=== PATIENT | female | born 1965 | race Hispanic/Latino ===

== ENCOUNTER 2017-05-24 16:56 | Inpatient (IN) | payer SELFPAY ==
[~2017-05-24] VITALS: Ht 157.5 cm; Wt 54.4 kg
[2017-05-24 18:05] LABS: APPEARANCE,URINE Turbid (CLEAR); BILIRUBIN,URINE Negative (NEGATIVE); COLOR,URINE Yellow (YELLOW); GLUCOSE, URINE (UA) >=1000 mg/dL (NEGATIVE); KETONES,URINE 40 mg/dL (NEGATIVE); LEUKOCYTE ESTERASE ,URINE Moderate (NEGATIVE); NITRATE,URINE Negative (NEGATIVE); OCCULT BLOOD,URINE Large (NEGATIVE); PROTEIN,URINE POS 2+ (NEGATIVE); UROBILINOGEN,URINE 0.2 mg/dL (0.2-1.0)
[2017-05-24] MEDS ORDERED: ONDANSETRON HCL 4 MG/2 ML VIAL ONE (18:15)
[2017-05-24] MEDS ORDERED: SODIUM CHLORIDE 0.9% 1000ML 1,000 ML IV ONE ×2 (18:16→18:35)
[2017-05-24] MEDS ORDERED: KETOROLAC TROMETHAMINE 15MG/ML ONE ×2 (18:16→22:26)
[2017-05-24 18:25] LABS: RBC,URINE None Seen /HPF (0-1)
[2017-05-24 18:26] LABS: BACTERIA,URINE Many /HPF (None Seen); SQUAMOUS EPITHELIAL CELL,UR 30-50 /LPF (0-2); WBC,URINE >100 /HPF (0-1)
[2017-05-24 18:27] LABS: HEMATOCRIT 34.5 % (36-48); MEAN CORPUSCULAR HEMOGLOBIN 28.7 pg (27.0-33.0); MEAN CORPUSCULAR HGB CONC 33.5 g/dL (32.0-36.0); MEAN CORPUSCULAR VOLUME 85.8 fL (79-99); PLATELET COUNT (AUTO) 165 K/uL (130-400); RED BLOOD CELL COUNT(AUTO) 4.02 MIL/uL (4.00-5.50); RED CELL DISTRIBUTION WIDTH 14.4 % (11.0-15.5); WHITE BLOOD COUNT (AUTO) 26.4 K/uL (4.8-10.8)
[2017-05-24 18:45] LABS: ALANINE AMINOTRANSFERASE 20 U/L (12-78); ALBUMIN 2.2 g/dL (3.5-5.0); ASPARTATE AMINOTRANSFERASE 25 U/L (10-37); BILIRUBIN,TOTAL 0.8 mg/dL (0.2-1.0); CARBON DIOXIDE 21 mmol/L (21-32); CREATININE 1.4 mg/dL (0.5-1.5); GLOMERULAR FILTR. RATE CALC 42 mL/min (>60); LIPASE < 50 U/L (114-286); POTASSIUM 3.7 mmol/L (3.5-5.1); SODIUM SERUM 119 mmol/L (136-145); TOTAL PROTEIN, SERUM 7.6 g/dL (6.0-8.3); UREA NITROGEN, BLOOD 30 mg/dL (7-18)
[2017-05-24 18:47] LABS: CHLORIDE 82 mmol/L (101-111); GLUCOSE,RANDOM 525 mg/dL (70-105)
[2017-05-24 18:48] LABS: INR 0.98 (0.85-1.15); PARTIAL THROMBOPLASTIN TIME 44.5 SEC (26.3-35.5); PROTHROMBIN TIME 10.3 SEC (9.6-11.6)
[2017-05-24 19:23] LABS: BAND NEUTROPHILS % (MANUAL) 10 % (0-2); MAN.DIFF COMMENT-IMPRESSION MANUAL DIFFERENTIAL; METAMYELOCYTES % 3 % (0-0); MONOCYTES % (MANUAL) 1 % (2-9); PLATELET MORPHOLOGY COMMENT ADEQUATE; SEGMENTED NEUTROPHILS % 86 % (40-70)
[2017-05-24] MEDS ORDERED: CEFTRIAXONE SODIUM 1 GM ONE (20:34)
[2017-05-24 20:54] LABS: ABG BASE EXCESS -3.8 mmol/L (-2.0-3.0); ABG HCO3 18.9 mmol/L (21.0-28.0); ABG OXYGEN SATURATION 96.1 % (95.0-99.0); ABG PCO2 29 mmHg (32-45)
[2017-05-24] MEDS: KETOROLAC TROMETHAMINE 15MG/ML IV SCH (21:00)
[2017-05-24] MEDS ORDERED: SODIUM CHLORIDE 0.9% 1000ML 1,000 ML IV SCH (21:15)
[2017-05-24] MEDS: SODIUM CHLORIDE 0.9% 1000ML 1,000 ML IV SCH (23:36)
[2017-05-24] MEDS ORDERED: MORPHINE SULFATE 10 MG/ML 1ML SYG IVP ONE (23:45)
[2017-05-25] MEDS ORDERED: TRAMADOL HCL 50 MG TABLET ONE ×2 (00:51→13:20)
[2017-05-25] MEDS: KETOROLAC TROMETHAMINE 15MG/ML IV SCH ×6 (01:00→21:00)
[2017-05-25] MEDS ORDERED: MORPHINE SULFATE 2 MG/ML 1ML SYG ONE (03:47)
[2017-05-25] MEDS ORDERED: SODIUM CHLORIDE 0.9% 1000ML 1,000 ML IV ONE (05:08)
[2017-05-25 05:41] LABS: ALBUMIN 1.8 g/dL (3.5-5.0); BILIRUBIN,TOTAL 0.5 mg/dL (0.2-1.0); CREATININE 1.2 mg/dL (0.5-1.5); POTASSIUM 3.3 mmol/L (3.5-5.1); TOTAL PROTEIN, SERUM 6.6 g/dL (6.0-8.3)
[2017-05-25 05:46] LABS: BASOPHILS % (AUTO) 0.4 % (0.0-5.0); EOSINOPHILS % (AUTO) 3.6 % (0.0-8.0); HEMATOCRIT 31.2 % (36-48); MEAN CORPUSCULAR HEMOGLOBIN 28.7 pg (27.0-33.0); MEAN CORPUSCULAR HGB CONC 33.6 g/dL (32.0-36.0); MEAN CORPUSCULAR VOLUME 85.3 fL (79-99); MONOCYTES % (AUTO) 4.8 % (3.0-13.0); NEUTROPHILS % (AUTO) 89.2 % (40.0-77.0); PLATELET COUNT (AUTO) 142 K/uL (130-400); RED BLOOD CELL COUNT(AUTO) 3.66 MIL/uL (4.00-5.50); RED CELL DISTRIBUTION WIDTH 14.1 % (11.0-15.5); WHITE BLOOD COUNT (AUTO) 21.7 K/uL (4.8-10.8)
[2017-05-25] MEDS ORDERED: CEFTRIAXONE SODIUM 1 GM ONE (07:19)
[2017-05-25] MEDS ORDERED: INSULIN HUMULIN R 100 UNIT/ML 3ML ONE (07:20)
[2017-05-25] MEDS ORDERED: SODIUM CHLORIDE 0.9% 50 ML IV ONE (07:21)
[2017-05-25] MEDS: INSULIN LISPRO 100 UNIT/ML 3ML SQ SCH ×4 (07:30→20:57)
[2017-05-25] MEDS: CEFTRIAXONE SODIUM 1 GM IVP SCH ×2 (08:00→20:55)
[2017-05-25] MEDS ORDERED: CEFTRIAXONE 1GM/D5W 50ML 50 ML IV SCH (09:00)
[2017-05-25] MEDS: PANTOPRAZOLE SODIUM 40 MG TABLET.DR PO SCH (09:00)
[2017-05-25] MEDS ORDERED: PANTOPRAZOLE SODIUM 40 MG TABLET.DR PO ONE (09:20)
[2017-05-25] MEDS: SODIUM CHLORIDE 0.9% 1000ML 1,000 ML IV SCH ×2 (09:36→18:31)
[2017-05-25 15:28] VITALS: BP 128/70
[2017-05-25 19:00] VITALS: BP 117/64
[2017-05-25] MEDS ORDERED: WATER FOR INJECTION,STERILE 20 ML VIAL ONE (20:48)
[2017-05-25] MEDS ORDERED: MORPHINE SULFATE 2 MG/ML 1ML SYG IVP ONE (22:00)
[2017-05-25 23:00] VITALS: BP 131/65
[2017-05-26] MEDS: KETOROLAC TROMETHAMINE 15MG/ML IV SCH ×6 (00:24→21:33)
[2017-05-26 03:00] VITALS: BP 133/79
[2017-05-26] MEDS: SODIUM CHLORIDE 0.9% 1000ML 1,000 ML IV SCH ×2 (05:13→16:33)
[2017-05-26 05:54] LABS: HEMATOCRIT 30.2 % (36-48); MEAN CORPUSCULAR HEMOGLOBIN 28.3 pg (27.0-33.0); MEAN CORPUSCULAR HGB CONC 33.3 g/dL (32.0-36.0); PLATELET COUNT (AUTO) 146 K/uL (130-400); RED BLOOD CELL COUNT(AUTO) 3.56 MIL/uL (4.00-5.50); RED CELL DISTRIBUTION WIDTH 14.3 % (11.0-15.5); WHITE BLOOD COUNT (AUTO) 15.6 K/uL (4.8-10.8)
[2017-05-26] MEDS ORDERED: INSULIN LISPRO 100 UNIT/ML 3ML SQ SCH (06:00)
[2017-05-26] MEDS: INSULIN LISPRO 100 UNIT/ML 3ML SQ SCH ×4 (06:21→21:44)
[2017-05-26 06:51] LABS: BAND NEUTROPHILS % (MANUAL) 8 % (0-2); LYMPHOCYTES % (MANUAL) 2 % (22-44); MAN.DIFF COMMENT-IMPRESSION MANUAL DIFFERENTIAL; MONOCYTES % (MANUAL) 5 % (2-9); PLATELET MORPHOLOGY COMMENT ADEQUATE; SEGMENTED NEUTROPHILS % 85 % (40-70)
[2017-05-26 07:37] VITALS: BP 134/72
[2017-05-26] MEDS: CEFTRIAXONE SODIUM 1 GM IVP SCH ×2 (10:00→21:33)
[2017-05-26] MEDS: PANTOPRAZOLE SODIUM 40 MG TABLET.DR PO SCH (10:01)
[2017-05-26 11:23] VITALS: BP 105/68
[2017-05-26 16:07] VITALS: BP 102/69
[2017-05-26 19:00] VITALS: BP 119/75
[2017-05-26] MEDS ORDERED: INSULIN GLARGINE 100 UNITS/ML 10 ML VIAL SQ SCH (21:00)
[2017-05-26] MEDS ORDERED: INSULIN LISPRO 100 UNIT/ML 3ML SQ ONE (21:25)
[2017-05-27 00:25] VITALS: BP 132/76
[2017-05-27] MEDS: KETOROLAC TROMETHAMINE 15MG/ML IV SCH ×6 (01:00→21:16)
[2017-05-27 03:00] VITALS: BP 134/82
[2017-05-27] MEDS ORDERED: INSULIN LISPRO 100 UNIT/ML 3ML SQ ONE (06:37)
[2017-05-27] MEDS: INSULIN LISPRO 100 UNIT/ML 3ML SQ SCH ×4 (06:40→21:06)
[2017-05-27 08:00] VITALS: BP 135/75
[2017-05-27] MEDS: PANTOPRAZOLE SODIUM 40 MG TABLET.DR PO SCH (09:42)
[2017-05-27] MEDS: CEFTRIAXONE SODIUM 1 GM IVP SCH ×2 (09:43→21:14)
[2017-05-27] MEDS: ONDANSETRON HCL 4 MG/2 ML VIAL IV PRN ×2 (10:16→21:15)
[2017-05-27 12:00] VITALS: BP 132/69
[2017-05-27] MEDS: TRAMADOL HCL 50 MG TABLET PO PRN (13:02)
[2017-05-27] MEDS: VANCOMYCIN 1GM+NS 250ML 250 ML IV SCH (13:03)
[2017-05-27 16:00] VITALS: BP 149/70
[2017-05-27] MEDS ORDERED: LACTULOSE 20 GM/30 ML UDCUP PO PRN (16:00)
[2017-05-27] MEDS: MORPHINE SULFATE 2 MG/ML 1ML SYG IV PRN ×2 (16:08→23:46)
[2017-05-27 19:00] VITALS: BP 150/78
[2017-05-27] MEDS ORDERED: WATER FOR INJECTION,STERILE 20 ML VIAL ONE (20:37)
[2017-05-27] MEDS ORDERED: INSULIN GLARGINE 100 UNITS/ML 10 ML VIAL SQ SCH (21:00)
[2017-05-28] VITALS: BP 121/60
[2017-05-28] MEDS: KETOROLAC TROMETHAMINE 15MG/ML IV SCH ×6 (01:00→21:00)
[2017-05-28 03:00] VITALS: BP 135/60
[2017-05-28] MEDS: ACETAMINOPHEN 325 MG TAB PO PRN (04:00)
[2017-05-28 05:55] LABS: HEMATOCRIT 28.7 % (36-48); MEAN CORPUSCULAR HEMOGLOBIN 28.4 pg (27.0-33.0); MEAN CORPUSCULAR HGB CONC 34.2 g/dL (32.0-36.0); MEAN CORPUSCULAR VOLUME 83.3 fL (79-99); PLATELET COUNT (AUTO) 207 K/uL (130-400); RED BLOOD CELL COUNT(AUTO) 3.45 MIL/uL (4.00-5.50); RED CELL DISTRIBUTION WIDTH 14.5 % (11.0-15.5); WHITE BLOOD COUNT (AUTO) 20.4 K/uL (4.8-10.8)
[2017-05-28 06:21] LABS: CREATININE 0.8 mg/dL (0.5-1.5)
[2017-05-28 06:24] LABS: POTASSIUM 2.8 mmol/L (3.5-5.1)
[2017-05-28 06:26] LABS: BAND NEUTROPHILS % (MANUAL) 12 % (0-2); EOSINOPHILS % (MANUAL) 1 % (1-6); LYMPHOCYTES % (MANUAL) 5 % (22-44); MAN.DIFF COMMENT-IMPRESSION MANUAL DIFFERENTIAL; MONOCYTES % (MANUAL) 3 % (2-9); SEGMENTED NEUTROPHILS % 79 % (40-70)
[2017-05-28 06:27] LABS: PLATELET MORPHOLOGY COMMENT ADEQUATE
[2017-05-28] MEDS: ONDANSETRON HCL 4 MG/2 ML VIAL IV PRN (06:34)
[2017-05-28] MEDS: MORPHINE SULFATE 2 MG/ML 1ML SYG IV PRN ×2 (06:34→20:38)
[2017-05-28 08:00] VITALS: BP 125/54
[2017-05-28] MEDS ORDERED: WATER FOR INJECTION,STERILE 20 ML VIAL ONE ×2 (08:17→17:37)
[2017-05-28] MEDS: INSULIN LISPRO 100 UNIT/ML 3ML SQ SCH ×4 (08:40→20:31)
[2017-05-28] MEDS: PANTOPRAZOLE SODIUM 40 MG TABLET.DR PO SCH (08:42)
[2017-05-28] MEDS: CEFTRIAXONE SODIUM 1 GM IVP SCH (08:42)
[2017-05-28] MEDS ORDERED: POTASSIUM CHLORIDE 10% ELIXIR 20 MEQ/15 ML UDCUP PO PRN (10:00)
[2017-05-28] MEDS ORDERED: POTASSIUM CHLORIDE 20MEQ/100ML 100 ML IV PRN (10:00)
[2017-05-28] MEDS ORDERED: LIDOCAINE HCL-MPF 1% 2ML VIAL IVP PRN (10:00)
[2017-05-28] MEDS: POTASSIUM CHLORIDE 20 MEQ ERTAB PO PRN ×4 (10:34→16:09)
[2017-05-28 12:00] VITALS: BP 126/76
[2017-05-28] MEDS: VANCOMYCIN 1GM+NS 250ML 250 ML IV SCH (12:17)
[2017-05-28] MEDS: CEFAZOLIN 2GM / 50 ML 50 ML IV SCH ×2 (15:30→22:50)
[2017-05-28 16:00] VITALS: BP 123/62
[2017-05-28] MEDS ORDERED: GADOBENATE DIMEGLUMINE 10 ML IV ONE (16:49)
[2017-05-28] MEDS: CEFAZOLIN SODIUM 1 GM VIAL IVP SCH (18:55)
[2017-05-28 20:06] VITALS: BP 158/77
[2017-05-28] MEDS: INSULIN GLARGINE 100 UNITS/ML 10 ML VIAL SQ SCH (20:32)
[2017-05-29 00:09] VITALS: BP 134/72
[2017-05-29] MEDS: KETOROLAC TROMETHAMINE 15MG/ML IV SCH ×5 (00:52→17:00)
[2017-05-29] MEDS: CEFAZOLIN SODIUM 1 GM VIAL IVP SCH ×3 (02:03→18:11)
[2017-05-29 03:19] VITALS: BP 131/76
[2017-05-29 05:28] LABS: HEMATOCRIT 27.6 % (36-48); MEAN CORPUSCULAR HEMOGLOBIN 29.6 pg (27.0-33.0); MEAN CORPUSCULAR HGB CONC 35.1 g/dL (32.0-36.0); MEAN CORPUSCULAR VOLUME 84.4 fL (79-99); PLATELET COUNT (AUTO) 245 K/uL (130-400); RED BLOOD CELL COUNT(AUTO) 3.27 MIL/uL (4.00-5.50); RED CELL DISTRIBUTION WIDTH 14.9 % (11.0-15.5); WHITE BLOOD COUNT (AUTO) 20.9 K/uL (4.8-10.8)
[2017-05-29 05:35] LABS: BAND NEUTROPHILS % (MANUAL) 19 % (0-2); LYMPHOCYTES % (MANUAL) 4 % (22-44); MONOCYTES % (MANUAL) 3 % (2-9); SEGMENTED NEUTROPHILS % 74 % (40-70)
[2017-05-29 05:36] LABS: MAN.DIFF COMMENT-IMPRESSION MANUAL DIFFERENTIAL; PLATELET MORPHOLOGY COMMENT ADEQUATE
[2017-05-29 05:52] LABS: CREATININE 0.9 mg/dL (0.5-1.5); MAGNESIUM 1.7 mg/dL (1.80-2.40); POTASSIUM 3.3 mmol/L (3.5-5.1)
[2017-05-29] MEDS: POTASSIUM CHLORIDE 20 MEQ ERTAB PO PRN ×3 (06:10→11:47)
[2017-05-29] MEDS: INSULIN LISPRO 100 UNIT/ML 3ML SQ SCH ×4 (06:19→20:43)
[2017-05-29] MEDS: INSULIN GLARGINE 100 UNITS/ML 10 ML VIAL SQ SCH ×2 (06:20→20:42)
[2017-05-29 08:00] VITALS: BP 142/66
[2017-05-29] MEDS ORDERED: PHARMACY COMMUNICATION MISC SCH (08:30)
[2017-05-29] MEDS: PANTOPRAZOLE SODIUM 40 MG TABLET.DR PO SCH (09:43)
[2017-05-29] MEDS: GENTAMICIN 80 MG/NS 100 ML PB 100 ML IV SCH ×2 (11:47→20:38)
[2017-05-29 12:00] VITALS: BP 154/88
[2017-05-29] MEDS ORDERED: MAGNESIUM SULFATE 2 GM in SODIUM CHLORIDE 0.9% 50 ML IV SCH (14:30)
[2017-05-29] MEDS ORDERED: INSULIN LISPRO 100 UNIT/ML 3ML SQ ONE (15:46)
[2017-05-29 15:49] VITALS: BP 142/66
[2017-05-29 19:00] VITALS: BP 146/81
[2017-05-29] MEDS: ACETAMINOPHEN 325 MG TAB PO PRN (21:03)
[2017-05-30] VITALS (12 sets, daily range): BP systolic 112–149; BP diastolic 48–84
[2017-05-30] MEDS: CEFAZOLIN SODIUM 1 GM VIAL IVP SCH ×3 (01:29→17:29)
[2017-05-30] MEDS: ACETAMINOPHEN 325 MG TAB PO PRN ×3 (05:36→19:46)
[2017-05-30 05:37] LABS: HEMATOCRIT 28.1 % (36-48); MEAN CORPUSCULAR HEMOGLOBIN 28.6 pg (27.0-33.0); MEAN CORPUSCULAR HGB CONC 34.5 g/dL (32.0-36.0); MEAN CORPUSCULAR VOLUME 82.9 fL (79-99); PLATELET COUNT (AUTO) 297 K/uL (130-400); RED BLOOD CELL COUNT(AUTO) 3.39 MIL/uL (4.00-5.50); RED CELL DISTRIBUTION WIDTH 14.6 % (11.0-15.5); WHITE BLOOD COUNT (AUTO) 20.9 K/uL (4.8-10.8)
[2017-05-30 05:46] LABS: BAND NEUTROPHILS % (MANUAL) 15 % (0-2); LYMPHOCYTES % (MANUAL) 9 % (22-44); MONOCYTES % (MANUAL) 13 % (2-9); SEGMENTED NEUTROPHILS % 63 % (40-70)
[2017-05-30 05:47] LABS: MAN.DIFF COMMENT-IMPRESSION MANUAL DIFFERENTIAL; PLATELET MORPHOLOGY COMMENT ADEQUATE
[2017-05-30 05:48] LABS: CREATININE 0.7 mg/dL (0.5-1.5); MAGNESIUM 1.6 mg/dL (1.80-2.40); POTASSIUM 3.6 mmol/L (3.5-5.1)
[2017-05-30] MEDS: INSULIN LISPRO 100 UNIT/ML 3ML SQ SCH ×4 (06:26→21:25)
[2017-05-30] MEDS: INSULIN GLARGINE 100 UNITS/ML 10 ML VIAL SQ SCH ×2 (06:27→21:24)
[2017-05-30] MEDS ORDERED: MAGNESIUM 2GM PREMIX 50ML 50 ML IV ONE (07:54)
[2017-05-30] MEDS ORDERED: WATER FOR INJECTION,STERILE 20 ML VIAL ONE ×2 (07:56→17:17)
[2017-05-30] MEDS ORDERED: SODIUM CHLORIDE 0.9% 500ML 500 ML IV ONE (08:05)
[2017-05-30] MEDS: GENTAMICIN 80 MG/NS 100 ML PB 100 ML IV SCH ×2 (08:13→21:22)
[2017-05-30] MEDS: MAGNESIUM 2GM PREMIX 50ML 50 ML IV PRN (12:33)
[2017-05-30] MEDS: PANTOPRAZOLE SODIUM 40 MG TABLET.DR PO SCH (12:34)
[2017-05-30] MEDS ORDERED: MIDAZOLAM HCL 1 MG/ML 2ML VIAL ONE (14:19)
[2017-05-30] MEDS ORDERED: FENTANYL CITRATE PF 50 MCG/1 ML 2ML VIAL ONE (14:19)
[2017-05-30] MEDS: POTASSIUM CHLORIDE 20 MEQ ERTAB PO PRN (18:05)
[2017-05-30] MEDS: MORPHINE SULFATE 2 MG/ML 1ML SYG IV PRN (18:19)
[2017-05-30] MEDS: ONDANSETRON HCL 4 MG/2 ML VIAL IV PRN (18:26)
[2017-05-31] MEDS: ACETAMINOPHEN 325 MG TAB PO PRN ×2 (00:32→08:44)
[2017-05-31] MEDS: POTASSIUM CHLORIDE 20 MEQ ERTAB PO PRN ×4 (00:33→10:45)
[2017-05-31] MEDS: CEFAZOLIN SODIUM 1 GM VIAL IVP SCH ×3 (01:35→16:20)
[2017-05-31 03:00] VITALS: BP 130/60
[2017-05-31 05:41] LABS: BASOPHILS % (AUTO) 0.2 % (0.0-5.0); EOSINOPHILS % (AUTO) 0.1 % (0.0-8.0); HEMATOCRIT 25.6 % (36-48); LYMPHOCYTES % (AUTO) 7.8 % (21.0-51.0); MEAN CORPUSCULAR HGB CONC 35.3 g/dL (32.0-36.0); MEAN CORPUSCULAR VOLUME 85.1 fL (79-99); MONOCYTES % (AUTO) 5.1 % (3.0-13.0); NEUTROPHILS % (AUTO) 86.8 % (40.0-77.0); PLATELET COUNT (AUTO) 314 K/uL (130-400); RED CELL DISTRIBUTION WIDTH 14.8 % (11.0-15.5); WHITE BLOOD COUNT (AUTO) 12.1 K/uL (4.8-10.8)
[2017-05-31 05:50] LABS: CREATININE 0.8 mg/dL (0.5-1.5); MAGNESIUM 1.9 mg/dL (1.80-2.40); POTASSIUM 3.3 mmol/L (3.5-5.1)
[2017-05-31] MEDS: INSULIN GLARGINE 100 UNITS/ML 10 ML VIAL SQ SCH ×2 (06:28→20:49)
[2017-05-31] MEDS: INSULIN LISPRO 100 UNIT/ML 3ML SQ SCH ×4 (06:29→20:48)
[2017-05-31 07:35] VITALS: BP 155/79
[2017-05-31] MEDS ORDERED: WATER FOR INJECTION,STERILE 20 ML VIAL ONE ×2 (08:41→16:17)
[2017-05-31] MEDS: TRAMADOL HCL 50 MG TABLET PO PRN (08:43)
[2017-05-31] MEDS: PANTOPRAZOLE SODIUM 40 MG TABLET.DR PO SCH (08:46)
[2017-05-31] MEDS: GENTAMICIN 80 MG/NS 100 ML PB 100 ML IV SCH ×2 (08:47→20:46)
[2017-05-31] MEDS: MAGNESIUM 2GM PREMIX 50ML 50 ML IV PRN (10:44)
[2017-05-31 11:25] VITALS: BP 141/63
[2017-05-31] MEDS ORDERED: SODIUM CHLORIDE 0.9% 500ML 500 ML IV ONE (15:46)
[2017-05-31 16:26] VITALS: BP 108/54
[2017-05-31 19:50] VITALS: BP 129/65
[2017-06-01] VITALS (7 sets, daily range): BP systolic 128–146; BP diastolic 62–79
[2017-06-01] MEDS: MORPHINE SULFATE 2 MG/ML 1ML SYG IV PRN ×3 (00:44→22:26)
[2017-06-01] MEDS: CEFAZOLIN SODIUM 1 GM VIAL IVP SCH ×4 (01:40→23:30)
[2017-06-01 05:49] LABS: BASOPHILS % (AUTO) 0.3 % (0.0-5.0); EOSINOPHILS % (AUTO) 0.2 % (0.0-8.0); HEMATOCRIT 27.4 % (36-48); LYMPHOCYTES % (AUTO) 10.8 % (21.0-51.0); MEAN CORPUSCULAR HEMOGLOBIN 29.3 pg (27.0-33.0); MEAN CORPUSCULAR VOLUME 83.8 fL (79-99); MONOCYTES % (AUTO) 4.8 % (3.0-13.0); NEUTROPHILS % (AUTO) 83.9 % (40.0-77.0); PLATELET COUNT (AUTO) 407 K/uL (130-400); RED BLOOD CELL COUNT(AUTO) 3.27 MIL/uL (4.00-5.50); RED CELL DISTRIBUTION WIDTH 14.6 % (11.0-15.5); WHITE BLOOD COUNT (AUTO) 10.9 K/uL (4.8-10.8)
[2017-06-01] MEDS: INSULIN LISPRO 100 UNIT/ML 3ML SQ SCH ×4 (06:19→22:18)
[2017-06-01] MEDS: INSULIN GLARGINE 100 UNITS/ML 10 ML VIAL SQ SCH ×2 (06:55→22:21)
[2017-06-01] MEDS ORDERED: HEPARIN SODIUM/PF 100UNIT/ML 5ML SYRINGE IV SCH (08:00)
[2017-06-01] MEDS: GENTAMICIN 80 MG/NS 100 ML PB 100 ML IV SCH ×2 (08:58→21:20)
[2017-06-01] MEDS: PANTOPRAZOLE SODIUM 40 MG TABLET.DR PO SCH (09:05)
[2017-06-01] MEDS ORDERED: DIATR MEGLU/DIATRIZOATE SODIUM 30 ML BOTTLE PO ONE (20:35)
[2017-06-02 04:00] VITALS: BP 119/75
[2017-06-02 05:55] LABS: HEMATOCRIT 27.9 % (36-48); MEAN CORPUSCULAR HEMOGLOBIN 30.6 pg (27.0-33.0); PLATELET COUNT (AUTO) 399 K/uL (130-400); RED BLOOD CELL COUNT(AUTO) 3.28 MIL/uL (4.00-5.50); RED CELL DISTRIBUTION WIDTH 14.9 % (11.0-15.5); WHITE BLOOD COUNT (AUTO) 10.3 K/uL (4.8-10.8)
[2017-06-02 05:56] LABS: CREATININE 0.8 mg/dL (0.5-1.5); MAGNESIUM 1.6 mg/dL (1.80-2.40); POTASSIUM 4.2 mmol/L (3.5-5.1)
[2017-06-02] MEDS: INSULIN LISPRO 100 UNIT/ML 3ML SQ SCH ×4 (05:56→21:56)
[2017-06-02 07:03] LABS: BAND NEUTROPHILS % (MANUAL) 6 % (0-2); LYMPHOCYTES % (MANUAL) 12 % (22-44); MONOCYTES % (MANUAL) 1 % (2-9); SEGMENTED NEUTROPHILS % 81 % (40-70)
[2017-06-02 07:04] LABS: MAN.DIFF COMMENT-IMPRESSION MANUAL DIFFERENTIAL; PLATELET MORPHOLOGY COMMENT ADEQUATE
[2017-06-02] MEDS: INSULIN GLARGINE 100 UNITS/ML 10 ML VIAL SQ SCH ×2 (07:30→21:54)
[2017-06-02 08:08] VITALS: BP 118/68
[2017-06-02] MEDS: PANTOPRAZOLE SODIUM 40 MG TABLET.DR PO SCH (09:00)
[2017-06-02] MEDS: GENTAMICIN 80 MG/NS 100 ML PB 100 ML IV SCH ×2 (09:55→21:31)
[2017-06-02] MEDS ORDERED: IOPAMIDOL-370 75 ML VIAL IV ONE (11:18)
[2017-06-02 12:28] VITALS: BP 112/56
[2017-06-02] MEDS: CEFAZOLIN SODIUM 1 GM VIAL IVP SCH ×2 (12:29→21:33)
[2017-06-02 16:24] VITALS: BP 150/78
[2017-06-02] MEDS: ACETAMINOPHEN 325 MG TAB PO PRN (17:07)
[2017-06-02 21:15] VITALS: BP 166/77
[2017-06-02] MEDS: HYDRALAZINE HCL 20 MG/ML VIAL IV PRN (21:33)
[2017-06-02] MEDS: MORPHINE SULFATE 2 MG/ML 1ML SYG IV PRN (21:34)
[2017-06-02] MEDS ORDERED: INSULIN LISPRO 100 UNIT/ML 3ML SQ ONE (21:55)
[2017-06-02 23:00] VITALS: BP 133/65
[2017-06-03 03:00] VITALS: BP 167/79
[2017-06-03] MEDS: HYDRALAZINE HCL 20 MG/ML VIAL IV PRN (04:09)
[2017-06-03] MEDS: CEFAZOLIN SODIUM 1 GM VIAL IVP SCH ×3 (04:09→16:18)
[2017-06-03] MEDS: INSULIN LISPRO 100 UNIT/ML 3ML SQ SCH ×4 (06:44→20:23)
[2017-06-03] MEDS: INSULIN GLARGINE 100 UNITS/ML 10 ML VIAL SQ SCH ×2 (06:45→20:24)
[2017-06-03] MEDS: ACETAMINOPHEN 325 MG TAB PO PRN ×2 (06:46→16:17)
[2017-06-03 07:00] VITALS: BP 128/69
[2017-06-03] MEDS: PANTOPRAZOLE SODIUM 40 MG TABLET.DR PO SCH (09:54)
[2017-06-03] MEDS: GENTAMICIN 80 MG/NS 100 ML PB 100 ML IV SCH ×2 (09:54→20:30)
[2017-06-03 12:04] VITALS: BP 131/72
[2017-06-03 16:00] VITALS: BP 164/81
[2017-06-03 20:00] VITALS: BP 172/75
[2017-06-03] MEDS ORDERED: MORPHINE SULFATE 4 MG/1ML SYG ONE (20:55)
[2017-06-03 23:44] VITALS: BP 110/74
[2017-06-04] MEDS: CEFAZOLIN SODIUM 1 GM VIAL IVP SCH ×3 (00:35→16:27)
[2017-06-04 03:45] VITALS: BP 148/63
[2017-06-04] MEDS ORDERED: MORPHINE SULFATE 4 MG/1ML SYG ONE ×3 (03:52→22:08)
[2017-06-04] MEDS: INSULIN LISPRO 100 UNIT/ML 3ML SQ SCH ×4 (06:11→21:00)
[2017-06-04 07:53] VITALS: BP 134/83
[2017-06-04] MEDS ORDERED: WATER FOR INJECTION,STERILE 20 ML VIAL ONE ×2 (09:26→16:24)
[2017-06-04] MEDS: GENTAMICIN 80 MG/NS 100 ML PB 100 ML IV SCH ×2 (09:38→22:16)
[2017-06-04] MEDS: PANTOPRAZOLE SODIUM 40 MG TABLET.DR PO SCH (09:38)
[2017-06-04] MEDS: INSULIN GLARGINE 100 UNITS/ML 10 ML VIAL SQ SCH ×2 (09:41→22:27)
[2017-06-04 11:52] VITALS: BP 145/86
[2017-06-04 16:00] VITALS: BP 130/73
[2017-06-04 20:56] VITALS: BP 127/56
[2017-06-04] MEDS: ACETAMINOPHEN 325 MG TAB PO PRN (22:18)
[2017-06-04 23:36] VITALS: BP 101/59
[2017-06-05] MEDS: ONDANSETRON HCL 4 MG/2 ML VIAL IV PRN ×2 (00:29→22:12)
[2017-06-05] MEDS ORDERED: WATER FOR INJECTION,STERILE 20 ML VIAL ONE (02:09)
[2017-06-05] MEDS: CEFAZOLIN SODIUM 1 GM VIAL IVP SCH ×3 (02:25→16:57)
[2017-06-05 04:20] VITALS: BP 94/53
[2017-06-05] MEDS: INSULIN LISPRO 100 UNIT/ML 3ML SQ SCH ×4 (05:56→21:13)
[2017-06-05] MEDS: INSULIN GLARGINE 100 UNITS/ML 10 ML VIAL SQ SCH ×2 (05:56→21:22)
[2017-06-05] MEDS: MORPHINE SULFATE 4 MG/1ML SYG IVP PRN ×3 (07:57→21:23)
[2017-06-05] MEDS ORDERED: MORPHINE SULFATE 4 MG/1ML SYG IVP PRN (08:00)
[2017-06-05 08:02] VITALS: BP 120/64
[2017-06-05] MEDS: GENTAMICIN 80 MG/NS 100 ML PB 100 ML IV SCH ×2 (08:06→21:12)
[2017-06-05] MEDS: PANTOPRAZOLE SODIUM 40 MG TABLET.DR PO SCH (08:43)
[2017-06-05 11:54] VITALS: BP 118/63
[2017-06-05 16:37] VITALS: BP 95/55
[2017-06-05 20:03] VITALS: BP 127/65
[2017-06-06] VITALS (7 sets, daily range): BP systolic 106–160; BP diastolic 51–80
[2017-06-06] MEDS: CEFAZOLIN SODIUM 1 GM VIAL IVP SCH ×3 (01:26→16:47)
[2017-06-06] MEDS: MORPHINE SULFATE 4 MG/1ML SYG IVP PRN (03:42)
[2017-06-06] MEDS: INSULIN LISPRO 100 UNIT/ML 3ML SQ SCH ×4 (06:12→20:26)
[2017-06-06] MEDS: INSULIN GLARGINE 100 UNITS/ML 10 ML VIAL SQ SCH ×2 (06:18→20:27)
[2017-06-06] MEDS: PANTOPRAZOLE SODIUM 40 MG TABLET.DR PO SCH (09:36)
[2017-06-06] MEDS: ONDANSETRON HCL 4 MG/2 ML VIAL IV PRN ×2 (09:36→20:29)
[2017-06-06] MEDS: GENTAMICIN 80 MG/NS 100 ML PB 100 ML IV SCH ×2 (09:38→20:15)
[2017-06-06] MEDS: TRAMADOL HCL 50 MG TABLET PO PRN (09:38)
[2017-06-06] MEDS: HYDROCODONE/ACETAMINOPHEN 5/325 MG TAB PO PRN ×2 (10:49→16:59)
[2017-06-06] MEDS ORDERED: MORPHINE SULFATE 10 MG/ML 1ML SYG ONE (19:56)
[2017-06-06] MEDS: ACETAMINOPHEN 325 MG TAB PO PRN (21:06)
[2017-06-07] MEDS: HYDROCODONE/ACETAMINOPHEN 5/325 MG TAB PO PRN ×2 (00:06→12:07)
[2017-06-07] MEDS: CEFAZOLIN SODIUM 1 GM VIAL IVP SCH ×3 (00:53→19:58)
[2017-06-07] MEDS: MORPHINE SULFATE 4 MG/1ML SYG IVP PRN (02:33)
[2017-06-07 03:00] VITALS: BP 107/59
[2017-06-07 05:30] LABS: HEMATOCRIT 29.7 % (36-48); MEAN CORPUSCULAR HEMOGLOBIN 28.3 pg (27.0-33.0); MEAN CORPUSCULAR HGB CONC 33.9 g/dL (32.0-36.0); MEAN CORPUSCULAR VOLUME 83.3 fL (79-99); PLATELET COUNT (AUTO) 537 K/uL (130-400); RED BLOOD CELL COUNT(AUTO) 3.57 MIL/uL (4.00-5.50); RED CELL DISTRIBUTION WIDTH 13.7 % (11.0-15.5)
[2017-06-07 05:44] LABS: ALANINE AMINOTRANSFERASE 12 U/L (12-78); ALBUMIN 1.9 g/dL (3.5-5.0); ASPARTATE AMINOTRANSFERASE 25 U/L (10-37); BILIRUBIN,DIRECT < 0.1 mg/dL (0.0-0.3); BILIRUBIN,TOTAL 0.1 mg/dL (0.2-1.0); CARBON DIOXIDE 25 mmol/L (21-32); CHLORIDE 97 mmol/L (101-111); GLOMERULAR FILTR. RATE CALC 62 mL/min (>60); GLUCOSE,RANDOM 128 mg/dL (70-105); POTASSIUM 4.5 mmol/L (3.5-5.1); SODIUM SERUM 131 mmol/L (136-145); TOTAL PROTEIN, SERUM 7.8 g/dL (6.0-8.3); UREA NITROGEN, BLOOD 14 mg/dL (7-18)
[2017-06-07] MEDS: INSULIN LISPRO 100 UNIT/ML 3ML SQ SCH ×4 (06:18→20:51)
[2017-06-07 06:19] LABS: BAND NEUTROPHILS % (MANUAL) 6 % (0-2); EOSINOPHILS % (MANUAL) 1 % (1-6); LYMPHOCYTES % (MANUAL) 11 % (22-44); MAN.DIFF COMMENT-IMPRESSION MANUAL DIFFERENTIAL; MONOCYTES % (MANUAL) 2 % (2-9); REACTIVE LYMPHOCYTES 1 % (0-0); SEGMENTED NEUTROPHILS % 79 % (40-70)
[2017-06-07 06:20] LABS: PLATELET MORPHOLOGY COMMENT SLIGHT INCREASED
[2017-06-07] MEDS: INSULIN GLARGINE 100 UNITS/ML 10 ML VIAL SQ SCH ×2 (06:29→20:51)
[2017-06-07 08:10] VITALS: BP 118/61
[2017-06-07] MEDS: GENTAMICIN 80 MG/NS 100 ML PB 100 ML IV SCH ×2 (09:06→19:58)
[2017-06-07] MEDS: MORPHINE SULFATE 2 MG/ML 1ML SYG IVP PRN ×2 (09:06→20:06)
[2017-06-07] MEDS: PANTOPRAZOLE SODIUM 40 MG TABLET.DR PO SCH (09:06)
[2017-06-07] MEDS ORDERED: WATER FOR INJECTION,STERILE 20 ML VIAL ONE (11:36)
[2017-06-07 11:38] VITALS: BP_SYST 131; BP_SYST 157; BP_DIAS 63; BP_DIAS 66
[2017-06-07 16:30] VITALS: BP 113/66
[2017-06-07 19:00] VITALS: BP 129/60
[2017-06-07 23:00] VITALS: BP 136/64
[2017-06-08] MEDS: CEFAZOLIN SODIUM 1 GM VIAL IVP SCH ×3 (01:44→17:51)
[2017-06-08] MEDS: ONDANSETRON HCL 4 MG/2 ML VIAL IV PRN ×2 (01:44→17:50)
[2017-06-08] MEDS: HYDROCODONE/ACETAMINOPHEN 5/325 MG TAB PO PRN ×2 (01:45→21:06)
[2017-06-08 03:00] VITALS: BP 142/66
[2017-06-08] MEDS: MORPHINE SULFATE 2 MG/ML 1ML SYG IVP PRN ×4 (03:37→23:04)
[2017-06-08 06:15] LABS: HEMATOCRIT 28.6 % (36-48); MEAN CORPUSCULAR HEMOGLOBIN 28.6 pg (27.0-33.0); MEAN CORPUSCULAR HGB CONC 34.5 g/dL (32.0-36.0); MEAN CORPUSCULAR VOLUME 83.1 fL (79-99); PLATELET COUNT (AUTO) 533 K/uL (130-400); RED BLOOD CELL COUNT(AUTO) 3.43 MIL/uL (4.00-5.50); RED CELL DISTRIBUTION WIDTH 14.1 % (11.0-15.5); WHITE BLOOD COUNT (AUTO) 10.6 K/uL (4.8-10.8)
[2017-06-08] MEDS: INSULIN LISPRO 100 UNIT/ML 3ML SQ SCH ×4 (06:25→21:11)
[2017-06-08] MEDS: INSULIN GLARGINE 100 UNITS/ML 10 ML VIAL SQ SCH ×2 (06:27→21:13)
[2017-06-08 07:00] VITALS: BP 130/75
[2017-06-08 07:30] LABS: BAND NEUTROPHILS % (MANUAL) 1 % (0-2); LYMPHOCYTES % (MANUAL) 16 % (22-44); MAN.DIFF COMMENT-IMPRESSION MANUAL DIFFERENTIAL; MONOCYTES % (MANUAL) 9 % (2-9); REACTIVE LYMPHOCYTES 1 % (0-0); SEGMENTED NEUTROPHILS % 73 % (40-70)
[2017-06-08] MEDS ORDERED: WATER FOR INJECTION,STERILE 20 ML VIAL ONE ×2 (08:18→17:45)
[2017-06-08] MEDS: PANTOPRAZOLE SODIUM 40 MG TABLET.DR PO SCH (10:04)
[2017-06-08] MEDS: GENTAMICIN 80 MG/NS 100 ML PB 100 ML IV SCH ×2 (10:11→21:06)
[2017-06-08 11:00] VITALS: BP 117/62
[2017-06-08 16:00] VITALS: BP 151/77
[2017-06-08 16:09] LABS: INR 0.91 (0.85-1.15); PARTIAL THROMBOPLASTIN TIME 25.7 SEC (26.3-35.5); PROTHROMBIN TIME 9.6 SEC (9.6-11.6)
[2017-06-08 19:00] VITALS: BP 123/81
[2017-06-08 23:00] VITALS: BP 151/70
[2017-06-09] MEDS: CEFAZOLIN SODIUM 1 GM VIAL IVP SCH ×2 (01:34→09:26)
[2017-06-09 03:00] VITALS: BP 149/80
[2017-06-09] MEDS: MORPHINE SULFATE 2 MG/ML 1ML SYG IVP PRN ×2 (05:10→11:14)
[2017-06-09] MEDS: INSULIN LISPRO 100 UNIT/ML 3ML SQ SCH ×3 (06:09→16:30)
[2017-06-09] MEDS: INSULIN GLARGINE 100 UNITS/ML 10 ML VIAL SQ SCH (06:11)
[2017-06-09 07:00] VITALS: BP 127/68
[2017-06-09] MEDS ORDERED: WATER FOR INJECTION,STERILE 20 ML VIAL ONE (09:01)
[2017-06-09] MEDS: PANTOPRAZOLE SODIUM 40 MG TABLET.DR PO SCH (09:25)
[2017-06-09] MEDS ORDERED: TRAM50TA4 PO (09:27)
[2017-06-09] MEDS ORDERED: INSLAN SQ (09:27)
[2017-06-09] MEDS: HYDROCODONE/ACETAMINOPHEN 5/325 MG TAB PO PRN ×2 (09:29→17:04)
[2017-06-09 11:00] VITALS: BP 121/63
[2017-06-09] MEDS ORDERED: CEFTRIAXONE 2GM+NS 100ML 100 ML IV SCH (13:30)
[2017-06-09] MEDS ORDERED: CEFTRIAXONE SODIUM 2 GM VIAL IVP SCH (14:00)
== END 2017-06-09 19:20 | disposition home or self-care (01) | DRG 872 ==
LOC: EDH 16:56 → EDHIP 16:57 → 4BH 05-25 14:18 → 4CH 06-07 22:36
PROVIDERS: ADMIT Family Medicine; ATTEND Family Medicine
PROC: B24BZZ4 Ultrasonography of Heart with Aorta, Transesophageal (ICD-10-PCS; principal; 2017-05-30)
PROC: 02HV33Z Insertion of Infusion Device into Superior Vena Cava, Percutaneous Approach (ICD-10-PCS; 2017-06-08)
DX: A41.01 Sepsis due to Methicillin susceptible Staphylococcus aureus (principal); E11.65 Type 2 diabetes mellitus with hyperglycemia; E87.1 Hypo-osmolality and hyponatremia; N39.0 Urinary tract infection, site not specified; N12 Tubulo-interstitial nephritis, not specified as acute or chronic; F17.200 Nicotine dependence, unspecified, uncomplicated; E87.6 Hypokalemia; D64.9 Anemia, unspecified; M54.9 Dorsalgia, unspecified; G89.29 Other chronic pain; E86.0 Dehydration; E78.5 Hyperlipidemia, unspecified; Z87.442 Personal history of urinary calculi; Z98.891 History of uterine scar from previous surgery; Z83.3 Family history of diabetes mellitus; Z91.19 Patient's noncompliance with other medical treatment and regimen
CPT/HCPCS: 36415; 36600; 71045; 72156; 72157; 72158; 74177; 76705; 76770; 78806; 80048; 80053; 80076; 80170; 81001; 82009; 82803; 82947; 82948; 83605; 83690; 83735; 84484; 85025; 85610; 85730; 87040; 87088; 87186; 93005; 93306; 93312; A4218; A9547; A9577; J0360; J0690; J0696; J1580; J1642; J1644; J1815; J1885; J2250; J2270; J2405; J3010; J3370; J3475; J7030; J7040; Q9963; Q9967

== ENCOUNTER 2023-05-19 22:56 | Inpatient (IN) | payer MEDICAID ==
[~2023-05-19] VITALS: Ht 157.5 cm; Wt 62.1 kg
[~2023-05-19 22:56] MED LIST: ATOR40TA69 PO; DAPA10TA PO; FENO48TA15 PO; INSU100I24 SQ; INSU100I3 SQ; LEVE-43 PO; LOSA-417 PO; METO25TA3 PO; [UNRECOGNIZED DRUG - OTHER] PO
[2023-05-19] MEDS ORDERED: ACETAMINOPHEN 500 MG TABLET PO ONE (23:00)
[2023-05-19] MEDS ORDERED: ONDANSETRON ODT 4MG TAB SL ONE (23:00)
[2023-05-19 23:48] LABS: BASOPHILS # (AUTO) 0.05 K/uL (0.00-0.20); BASOPHILS % (AUTO) 0.3 % (0.0-5.0); EOSINOPHILS # (AUTO) 0.14 K/uL (0.00-0.70); EOSINOPHILS % (AUTO) 0.7 % (0.0-8.0); HEMATOCRIT 27.1 % (36-48); IMMATURE GRANULOCYTE ABSOLUTE 0.13 K/uL (0-1); LYMPHOCYTES # (AUTO) 1.4 K/uL (1.0-4.8); LYMPHOCYTES % (AUTO) 7.2 % (21.0-51.0); MEAN CORPUSCULAR HGB CONC 35.1 g/dL (32.0-36.0); MEAN CORPUSCULAR VOLUME 79.9 fL (79-99); MONOCYTES # (AUTO) 1.1 K/uL (0.1-1.0); MONOCYTES % (AUTO) 5.7 % (3.0-13.0); NEUTROPHILS # (AUTO) 16.1 K/uL (1.8-7.7); NEUTROPHILS % (AUTO) 85.4 % (40.0-77.0); PLATELET COUNT (AUTO) 200 K/uL (130-400); RED BLOOD CELL COUNT(AUTO) 3.39 MIL/uL (4.00-5.50); RED CELL DISTRIBUTION WIDTH 14.7 % (11.0-15.5); WHITE BLOOD COUNT (AUTO) 18.9 K/uL (4.8-10.8)
[2023-05-20 00:07] LABS: SARS-CoV-2, RNA, NAAT NEGATIVE SARS CoV-2 (NEGATIVE)
[2023-05-20 00:09] LABS: ALBUMIN 2.2 g/dL (3.5-5.0); BILIRUBIN,TOTAL 0.6 mg/dL (0.2-1.0); CREATININE 3.8 mg/dL (0.5-1.5)
[2023-05-20 00:10] LABS: INFLUENZA TYPE A Negative For Type A (NEGATIVE); INFLUENZA TYPE B Negative For Type B (NEGATIVE)
[2023-05-20 00:15] LABS: POTASSIUM 2.9 mmol/L (3.5-5.1)
[2023-05-20] MEDS ORDERED: NACL 0.9% IV STA ×2 (00:44→00:54)
[2023-05-20] MEDS ORDERED: POTASSIUM CHLORIDE IV STA ×2 (00:44→00:54)
[2023-05-20] MEDS ORDERED: CEFTRIAXONE 2GM VIAL ONE (00:48)
[2023-05-20] MEDS ORDERED: AZITHROMYCIN 500MG+NS 250ML 250 ML IV ONE (01:00)
[2023-05-20] MEDS ORDERED: 0.9%NACL 1000ML 3,000 ML IV ONE (01:00)
[2023-05-20] MEDS ORDERED: POTASSIUM CHLORIDE 20MEQ/10ML 10 MEQ in 0.9%NACL 50ML 50 ML IV SCH (01:00)
[2023-05-20] MEDS ORDERED: CEFTRIAXONE 1G VIAL 2 GM in 0.9%NACL 100ML 100 ML IV ONE (01:00)
[2023-05-20 01:08] LABS: ABG BASE EXCESS -8.7 mmol/L (-2.0-3.0); ABG HCO3 14.6 mmol/L (21.0-28.0); ABG OXYGEN SATURATION 95.7 % (95.0-99.0); ABG PCO2 24 mmHg (32-45); ABG PH 7.404 (7.35-7.450); CARBON MONOXIDE 0; HHb 4.3; PO2, ARTERIAL BG 82.3 mmHg (83.0-108.0); VENT MODE, BG RA,21 (ROOM AIR)
[2023-05-20 01:22] LABS: INR 0.94 (0.85-1.15); PROTHROMBIN TIME 10.9 SEC (9.6-11.6)
[2023-05-20 01:23] LABS: PARTIAL THROMBOPLASTIN TIME 42.7 SEC (26.3-35.5)
[2023-05-20] MEDS ORDERED: POTASSIUM CHLORIDE 20MEQ/100ML 100 ML IV ONE (01:59)
[2023-05-20] MEDS ORDERED: POTASSIUM CHLORIDE 10MEQ/100ML 100 ML IV PRN (04:30)
[2023-05-20] MEDS ORDERED: POTASSIUM CHLORIDE 10% ELIXIR 20 MEQ/15 ML UDCUP PO PRN (04:30)
[2023-05-20] MEDS: DOXYCYCLINE 100MG+NS 250ML 250 ML IV SCH ×2 (06:44→18:19)
[2023-05-20 07:04] LABS: BASOPHILS # (AUTO) 0.03 K/uL (0.00-0.20); BASOPHILS % (AUTO) 0.2 % (0.0-5.0); HEMATOCRIT 25.7 % (36-48); IMMATURE GRANULOCYTE ABSOLUTE 0.11 K/uL (0-1); LYMPHOCYTES # (AUTO) 1.3 K/uL (1.0-4.8); LYMPHOCYTES % (AUTO) 8.3 % (21.0-51.0); MEAN CORPUSCULAR HEMOGLOBIN 28.3 pg (27.0-33.0); MEAN CORPUSCULAR HGB CONC 34.6 g/dL (32.0-36.0); MEAN CORPUSCULAR VOLUME 81.8 fL (79-99); MONOCYTES # (AUTO) 0.9 K/uL (0.1-1.0); MONOCYTES % (AUTO) 5.7 % (3.0-13.0); NEUTROPHILS # (AUTO) 13.1 K/uL (1.8-7.7); NEUTROPHILS % (AUTO) 85.1 % (40.0-77.0); PLATELET COUNT (AUTO) 166 K/uL (130-400); RED BLOOD CELL COUNT(AUTO) 3.14 MIL/uL (4.00-5.50); RED CELL DISTRIBUTION WIDTH 14.9 % (11.0-15.5); WHITE BLOOD COUNT (AUTO) 15.4 K/uL (4.8-10.8)
[2023-05-20 07:24] LABS: ALBUMIN 1.8 g/dL (3.5-5.0); BILIRUBIN,TOTAL 0.3 mg/dL (0.2-1.0); CREATININE 3.4 mg/dL (0.5-1.5); TOTAL PROTEIN, SERUM 5.9 g/dL (6.0-8.3)
[2023-05-20 07:27] LABS: POTASSIUM 2.7 mmol/L (3.5-5.1)
[2023-05-20] MEDS: INSULIN HUMULIN R 100 UNIT/ML 3ML SQ SCH ×4 (07:30→21:00)
[2023-05-20 09:23] VITALS: BP 150/72; PULSE 91; RESP 17
[2023-05-20] MEDS: ENOXAPARIN SODIUM 30 MG/0.3 ML SQ SCH (09:39)
[2023-05-20 11:46] VITALS: BP 157/74; PULSE 93; RESP 20
[2023-05-20] MEDS: ACETAMINOPHEN 325 MG TAB PO PRN ×2 (12:37→18:19)
[2023-05-20 16:17] VITALS: BP 158/77; PULSE 85; RESP 17
[2023-05-20 20:00] VITALS: BP 124/65; PULSE 90; RESP 18; O2SAT 96
[2023-05-20] MEDS: ACETAMINOPHEN WITH CODEINE 1 TAB TAB PO PRN (22:13)
[2023-05-20] MEDS ORDERED: POTASSIUM CHLORIDE 10% ELIXIR 20 MEQ/15 ML UDCUP PO SCH (22:30)
[2023-05-20] MEDS: 0.9%NACL 1000ML 1,000 ML IV SCH (22:42)
[2023-05-21] VITALS (7 sets, daily range): BP systolic 133–165; BP diastolic 66–90; PULSE 83–98; RESP 16–20; TEMP 100.1; O2SAT 97–98
[2023-05-21] MEDS: CEFTRIAXONE 1G VIAL IVPB SCH (01:08)
[2023-05-21] MEDS: ACETAMINOPHEN 325 MG TAB PO PRN ×2 (03:58→12:54)
[2023-05-21] MEDS: ONDANSETRON 4MG INJ IVP PRN ×3 (05:07→21:04)
[2023-05-21 05:14] LABS: HEMATOCRIT 24.1 % (36-48); MEAN CORPUSCULAR HEMOGLOBIN 27.3 pg (27.0-33.0); MEAN CORPUSCULAR HGB CONC 33.6 g/dL (32.0-36.0); MEAN CORPUSCULAR VOLUME 81.1 fL (79-99); RED BLOOD CELL COUNT(AUTO) 2.97 MIL/uL (4.00-5.50); RED CELL DISTRIBUTION WIDTH 15.4 % (11.0-15.5)
[2023-05-21 05:20] LABS: CREATININE 3.5 mg/dL (0.5-1.5); MAGNESIUM 1.5 mg/dL (1.80-2.40); POTASSIUM 3.2 mmol/L (3.5-5.1)
[2023-05-21 05:26] LABS: INR < 0.93 (0.85-1.15); PROTHROMBIN TIME 9.8 SEC (9.6-11.6)
[2023-05-21 05:27] LABS: PARTIAL THROMBOPLASTIN TIME 24.2 SEC (26.3-35.5)
[2023-05-21] MEDS: DOXYCYCLINE 100MG+NS 250ML 250 ML IV SCH ×2 (05:59→17:02)
[2023-05-21] MEDS: INSULIN HUMULIN R 100 UNIT/ML 3ML SQ SCH ×4 (06:12→20:11)
[2023-05-21] MEDS: ACETAMINOPHEN WITH CODEINE 1 TAB TAB PO PRN ×2 (10:26→19:56)
[2023-05-21] MEDS: ENOXAPARIN SODIUM 30 MG/0.3 ML SQ SCH (10:27)
[2023-05-21] MEDS: 0.9%NACL 1000ML 1,000 ML IV SCH (11:50)
[2023-05-21] MEDS ORDERED: KCL 20 MEQ ERTAB PO SCH (15:30)
[2023-05-21] MEDS: SODIUM BICARBONATE 650 MG TAB PO SCH (21:04)
[2023-05-21] MEDS: MAGNESIUM 2GM PREMIX 50ML 50 ML IV PRN (21:05)
[2023-05-22] VITALS: BP 144/59; PULSE 89; RESP 17
[2023-05-22] MEDS: CEFTRIAXONE 1G VIAL IVPB SCH (00:26)
[2023-05-22] MEDS: 0.9%NACL 1000ML 1,000 ML IV SCH ×2 (00:27→14:28)
[2023-05-22] MEDS: GUAIFENESIN-DM 200/20 MG 10 ML PO PRN ×2 (03:38→10:02)
[2023-05-22] MEDS: ONDANSETRON 4MG INJ IVP PRN ×2 (03:41→13:24)
[2023-05-22 04:00] VITALS: BP 150/80; PULSE 90; RESP 17
[2023-05-22] MEDS: DOXYCYCLINE 100MG+NS 250ML 250 ML IV SCH ×2 (05:06→19:29)
[2023-05-22 06:08] LABS: HEMATOCRIT 21.8 % (36-48); MEAN CORPUSCULAR HEMOGLOBIN 27.9 pg (27.0-33.0); MEAN CORPUSCULAR HGB CONC 33.9 g/dL (32.0-36.0); MEAN CORPUSCULAR VOLUME 82.3 fL (79-99); RED BLOOD CELL COUNT(AUTO) 2.65 MIL/uL (4.00-5.50); RED CELL DISTRIBUTION WIDTH 15.7 % (11.0-15.5); WHITE BLOOD COUNT (AUTO) 6.8 K/uL (4.8-10.8)
[2023-05-22 06:14] LABS: CREATININE 3.5 mg/dL (0.5-1.5); POTASSIUM 3.3 mmol/L (3.5-5.1)
[2023-05-22] MEDS: INSULIN HUMULIN R 100 UNIT/ML 3ML SQ SCH ×4 (06:36→21:00)
[2023-05-22 08:00] VITALS: BP 150/83; PULSE 85; RESP 16; O2SAT 95
[2023-05-22] MEDS: ENOXAPARIN SODIUM 30 MG/0.3 ML SQ SCH (10:02)
[2023-05-22] MEDS: SODIUM BICARBONATE 650 MG TAB PO SCH ×2 (10:02→21:11)
[2023-05-22] MEDS: ACETAMINOPHEN WITH CODEINE 1 TAB TAB PO PRN (10:06)
[2023-05-22 12:00] VITALS: BP 163/82; PULSE 78; RESP 20
[2023-05-22] MEDS: ZOSYN 3.375GM +NS 50ML IV SCH ×2 (12:45→23:28)
[2023-05-22] MEDS ORDERED: PROMETHAZINE HCL 25 MG/ML 1ML AMPULE IM PRN (13:30)
[2023-05-22 16:00] VITALS: BP 147/76; PULSE 69; RESP 20
[2023-05-22 20:00] VITALS: BP 139/71; PULSE 71; RESP 17; O2SAT 98
[2023-05-23] VITALS (7 sets, daily range): BP systolic 142–175; BP diastolic 67–91; PULSE 76–89; RESP 16–21; O2SAT 97
[2023-05-23] MEDS ORDERED: BRIM5DRO5 OP (00:11)
[2023-05-23] MEDS ORDERED: TERB250T89 PO (00:11)
[2023-05-23] MEDS ORDERED: AEC81 PO (00:11)
[2023-05-23] MEDS ORDERED: FINE10TA PO (00:11)
[2023-05-23] MEDS ORDERED: CLOP-31 PO (00:11)
[2023-05-23] MEDS ORDERED: ALEN70TA80 PO (00:11)
[2023-05-23] MEDS ORDERED: FURO40TA5 PO (00:11)
[2023-05-23 01:14] LABS: APPEARANCE,URINE CLEAR (CLEAR); BILIRUBIN,URINE NEGATIVE (NEGATIVE); COLOR,URINE LIGHT-YELLOW (YELLOW); GLUCOSE, URINE (UA) 70 mg/dL (NEGATIVE); KETONES,URINE NEGATIVE (NEGATIVE); LEUKOCYTE ESTERASE ,URINE NEGATIVE Leu/uL (NEGATIVE); NITRATE,URINE NEGATIVE (NEGATIVE); OCCULT BLOOD,URINE MODERATE (NEGATIVE); PROTEIN,URINE 300 mg/dL (NEGATIVE); UROBILINOGEN,URINE 0.2 mg/dL (0.2-1.0)
[2023-05-23 01:15] LABS: ADD UA MICROSCOPIC YES
[2023-05-23 01:33] LABS: MUCUS,URINE RARE LPF (None Seen); SQUAMOUS EPITHELIAL CELL,UR RARE /HPF (0-2); WBC,URINE 0-1 /HPF (0-1)
[2023-05-23] MEDS: GUAIFENESIN-DM 200/20 MG 10 ML PO PRN ×2 (02:18→21:46)
[2023-05-23] MEDS: PROMETHAZINE HCL 25 MG TABLET PO PRN (02:18)
[2023-05-23] MEDS: 0.9%NACL 1000ML 1,000 ML IV SCH ×2 (03:24→21:46)
[2023-05-23] MEDS: DOXYCYCLINE 100MG+NS 250ML 250 ML IV SCH ×2 (05:23→17:45)
[2023-05-23] MEDS: INSULIN HUMULIN R 100 UNIT/ML 3ML SQ SCH ×4 (05:46→21:00)
[2023-05-23 08:35] LABS: HEMATOCRIT 22.3 % (36-48); MEAN CORPUSCULAR HEMOGLOBIN 27.4 pg (27.0-33.0); MEAN CORPUSCULAR HGB CONC 33.6 g/dL (32.0-36.0); MEAN CORPUSCULAR VOLUME 81.4 fL (79-99); RED BLOOD CELL COUNT(AUTO) 2.74 MIL/uL (4.00-5.50); RED CELL DISTRIBUTION WIDTH 15.9 % (11.0-15.5); WHITE BLOOD COUNT (AUTO) 4.8 K/uL (4.8-10.8)
[2023-05-23 08:55] LABS: CREATININE 3.5 mg/dL (0.5-1.5); MAGNESIUM 1.9 mg/dL (1.80-2.40); POTASSIUM 3.2 mmol/L (3.5-5.1)
[2023-05-23] MEDS: SODIUM BICARBONATE 650 MG TAB PO SCH ×2 (10:03→21:46)
[2023-05-23] MEDS: ENOXAPARIN SODIUM 30 MG/0.3 ML SQ SCH (10:04)
[2023-05-23] MEDS: ZOSYN 3.375GM +NS 50ML IV SCH (12:04)
[2023-05-23 17:35] LABS: INR < 0.93 (0.85-1.15); PROTHROMBIN TIME 10.3 SEC (9.6-11.6)
[2023-05-23 17:36] LABS: PARTIAL THROMBOPLASTIN TIME 30.6 SEC (26.3-35.5)
[2023-05-23] MEDS: ACETAMINOPHEN WITH CODEINE 1 TAB TAB PO PRN (21:46)
[2023-05-24] VITALS (8 sets, daily range): BP systolic 150–182; BP diastolic 70–87; PULSE 74–84; RESP 16–20; O2SAT 95–98
[2023-05-24] MEDS: 0.9%NACL 1000ML 1,000 ML IV SCH ×2 (05:04→21:55)
[2023-05-24] MEDS: DOXYCYCLINE 100MG+NS 250ML 250 ML IV SCH ×2 (05:04→18:09)
[2023-05-24] MEDS: INSULIN HUMULIN R 100 UNIT/ML 3ML SQ SCH ×4 (05:51→21:00)
[2023-05-24 07:26] LABS: HEMATOCRIT 23.1 % (36-48); MEAN CORPUSCULAR HEMOGLOBIN 27.3 pg (27.0-33.0); MEAN CORPUSCULAR HGB CONC 33.8 g/dL (32.0-36.0); MEAN CORPUSCULAR VOLUME 80.8 fL (79-99); RED BLOOD CELL COUNT(AUTO) 2.86 MIL/uL (4.00-5.50); RED CELL DISTRIBUTION WIDTH 15.8 % (11.0-15.5); WHITE BLOOD COUNT (AUTO) 5.6 K/uL (4.8-10.8)
[2023-05-24 07:35] LABS: INR < 0.93 (0.85-1.15); PROTHROMBIN TIME 10.6 SEC (9.6-11.6)
[2023-05-24 07:36] LABS: CREATININE 3.7 mg/dL (0.5-1.5); MAGNESIUM 1.7 mg/dL (1.80-2.40); PARTIAL THROMBOPLASTIN TIME 32.5 SEC (26.3-35.5); POTASSIUM 3.1 mmol/L (3.5-5.1)
[2023-05-24] MEDS: SODIUM BICARBONATE 650 MG TAB PO SCH ×2 (10:13→21:58)
[2023-05-24] MEDS: KCL 20 MEQ ERTAB PO PRN ×2 (10:14→18:18)
[2023-05-24] MEDS: ENOXAPARIN SODIUM 30 MG/0.3 ML SQ SCH (10:20)
[2023-05-24] MEDS: ZOSYN 3.375GM +NS 50ML IV SCH ×2 (12:00)
[2023-05-24] MEDS: GUAIFENESIN-DM 200/20 MG 10 ML PO PRN (16:53)
[2023-05-24] MEDS: ACETAMINOPHEN WITH CODEINE 1 TAB TAB PO PRN ×2 (16:53→21:58)
[2023-05-24] MEDS: 0.9%NACL 10ML VIAL IV SCH (21:55)
[2023-05-24] MEDS: ONDANSETRON 4MG INJ IVP PRN (21:58)
[2023-05-25] VITALS (7 sets, daily range): BP systolic 143–175; BP diastolic 66–83; PULSE 66–78; RESP 16–20; O2SAT 96–98
[2023-05-25] MEDS: ZOSYN 3.375GM +NS 50ML IV SCH ×3 (01:11→23:22)
[2023-05-25] MEDS: PROMETHAZINE HCL 25 MG TABLET PO PRN (01:18)
[2023-05-25] MEDS: ACETAMINOPHEN WITH CODEINE 1 TAB TAB PO PRN ×2 (01:49→21:49)
[2023-05-25] MEDS: INSULIN HUMULIN R 100 UNIT/ML 3ML SQ SCH ×4 (06:00→21:00)
[2023-05-25] MEDS: DOXYCYCLINE 100MG+NS 250ML 250 ML IV SCH ×2 (06:01→18:47)
[2023-05-25] MEDS: BRIMONIDINE TARTRATE 0.2% 5 ML BOTTLE OP SCH ×2 (09:00→23:22)
[2023-05-25] MEDS: FINERENONE 10 MG PO SCH (09:00)
[2023-05-25] MEDS: METOPROLOL SUCCINATE 25 MG TAB.SR.24H PO SCH (10:39)
[2023-05-25] MEDS: FENOFIBRATE NANOCRYSTALLIZED 48 MG TAB PO SCH (10:39)
[2023-05-25] MEDS: SODIUM BICARBONATE 650 MG TAB PO SCH ×2 (10:39→21:41)
[2023-05-25] MEDS: TERBINAFINE HCL 250 MG TABLET PO SCH (10:39)
[2023-05-25] MEDS: ASPIRIN 81 MG EC TAB PO SCH (10:39)
[2023-05-25] MEDS: FUROSEMIDE 40 MG TABLET PO SCH (10:39)
[2023-05-25] MEDS: CLOPIDOGREL 75MG TAB PO SCH (10:39)
[2023-05-25] MEDS: LOSARTAN 25 MG TABLET PO SCH (10:39)
[2023-05-25] MEDS: 0.9%NACL 10ML VIAL IV SCH ×2 (10:40→21:41)
[2023-05-25] MEDS: ENOXAPARIN SODIUM 30 MG/0.3 ML SQ SCH (10:40)
[2023-05-25] MEDS: 0.9%NACL 1000ML 1,000 ML IV SCH ×2 (18:46→22:30)
[2023-05-25] MEDS: ATORVASTATIN 40 MG TABLET PO SCH (21:40)
[2023-05-25] MEDS: GUAIFENESIN-DM 200/20 MG 10 ML PO PRN (21:50)
[2023-05-26] VITALS (7 sets, daily range): BP systolic 138–166; BP diastolic 62–79; PULSE 66–93; RESP 18–20; O2SAT 98
[2023-05-26 05:53] LABS: HEMATOCRIT 22.2 % (36-48); MEAN CORPUSCULAR HEMOGLOBIN 28.1 pg (27.0-33.0); MEAN CORPUSCULAR HGB CONC 34.2 g/dL (32.0-36.0); MEAN CORPUSCULAR VOLUME 82.2 fL (79-99); RED BLOOD CELL COUNT(AUTO) 2.7 MIL/uL (4.00-5.50); RED CELL DISTRIBUTION WIDTH 16.3 % (11.0-15.5); WHITE BLOOD COUNT (AUTO) 8.1 K/uL (4.8-10.8)
[2023-05-26 05:59] LABS: CREATININE 3.9 mg/dL (0.5-1.5); MAGNESIUM 1.4 mg/dL (1.80-2.40); POTASSIUM 3.2 mmol/L (3.5-5.1)
[2023-05-26] MEDS: INSULIN HUMULIN R 100 UNIT/ML 3ML SQ SCH ×3 (06:04→20:18)
[2023-05-26] MEDS: DOXYCYCLINE 100MG+NS 250ML 250 ML IV SCH ×2 (06:10→18:03)
[2023-05-26] MEDS: FINERENONE 10 MG PO SCH (09:00)
[2023-05-26] MEDS: TERBINAFINE HCL 250 MG TABLET PO SCH (09:42)
[2023-05-26] MEDS: SODIUM BICARBONATE 650 MG TAB PO SCH ×2 (09:42→20:03)
[2023-05-26] MEDS: FENOFIBRATE NANOCRYSTALLIZED 48 MG TAB PO SCH (09:42)
[2023-05-26] MEDS: FUROSEMIDE 40 MG TABLET PO SCH (09:43)
[2023-05-26] MEDS: METOPROLOL SUCCINATE 25 MG TAB.SR.24H PO SCH (09:43)
[2023-05-26] MEDS: LOSARTAN 25 MG TABLET PO SCH (09:43)
[2023-05-26] MEDS: CLOPIDOGREL 75MG TAB PO SCH (09:43)
[2023-05-26] MEDS: ASPIRIN 81 MG EC TAB PO SCH (09:43)
[2023-05-26] MEDS: ENOXAPARIN SODIUM 30 MG/0.3 ML SQ SCH (09:44)
[2023-05-26] MEDS: 0.9%NACL 10ML VIAL IV SCH ×2 (09:44→20:03)
[2023-05-26] MEDS: BRIMONIDINE TARTRATE 0.2% 5 ML BOTTLE OP SCH ×2 (09:45→20:03)
[2023-05-26] MEDS: ONDANSETRON 4MG INJ IVP PRN ×2 (09:58→23:50)
[2023-05-26] MEDS: ZOSYN 3.375GM +NS 50ML IV SCH ×2 (11:51→23:40)
[2023-05-26] MEDS ORDERED: KCL 20 MEQ ERTAB PO SCH (17:30)
[2023-05-26] MEDS: 0.9%NACL 1000ML 1,000 ML IV SCH (18:04)
[2023-05-26] MEDS: ATORVASTATIN 40 MG TABLET PO SCH (20:03)
[2023-05-26] MEDS: ACETAMINOPHEN WITH CODEINE 1 TAB TAB PO PRN (21:37)
[2023-05-26] MEDS: GUAIFENESIN-DM 200/20 MG 10 ML PO PRN (21:37)
[2023-05-27] VITALS: BP 141/68; PULSE 71; RESP 18
[2023-05-27] MEDS: 0.9%NACL 1000ML 1,000 ML IV SCH ×2 (00:15→14:30)
[2023-05-27] MEDS: MAGNESIUM 2GM PREMIX 50ML 50 ML IV PRN (01:37)
[2023-05-27 04:00] VITALS: BP 145/69; PULSE 59; RESP 18
[2023-05-27] MEDS: DOXYCYCLINE 100MG+NS 250ML 250 ML IV SCH (05:22)
[2023-05-27 05:29] LABS: HEMATOCRIT 24.4 % (36-48); MEAN CORPUSCULAR HEMOGLOBIN 27.4 pg (27.0-33.0); MEAN CORPUSCULAR HGB CONC 32.8 g/dL (32.0-36.0); MEAN CORPUSCULAR VOLUME 83.6 fL (79-99); RED BLOOD CELL COUNT(AUTO) 2.92 MIL/uL (4.00-5.50); RED CELL DISTRIBUTION WIDTH 16.5 % (11.0-15.5)
[2023-05-27 05:40] LABS: CREATININE 3.5 mg/dL (0.5-1.5); MAGNESIUM 1.5 mg/dL (1.80-2.40); POTASSIUM 3.4 mmol/L (3.5-5.1)
[2023-05-27] MEDS ORDERED: ALENDRONATE SODIUM 35 MG TAB PO SCH (06:30)
[2023-05-27] MEDS: INSULIN HUMULIN R 100 UNIT/ML 3ML SQ SCH ×2 (06:38→11:30)
[2023-05-27 08:00] VITALS: BP 141/69; PULSE 65; RESP 17
[2023-05-27] MEDS: FINERENONE 10 MG PO SCH (09:00)
[2023-05-27 09:23] VITALS: O2SAT 98
[2023-05-27] MEDS: SODIUM BICARBONATE 650 MG TAB PO SCH (09:40)
[2023-05-27] MEDS: LOSARTAN 25 MG TABLET PO SCH (09:40)
[2023-05-27] MEDS: ASPIRIN 81 MG EC TAB PO SCH (09:40)
[2023-05-27] MEDS: FENOFIBRATE NANOCRYSTALLIZED 48 MG TAB PO SCH (09:41)
[2023-05-27] MEDS: METOPROLOL SUCCINATE 25 MG TAB.SR.24H PO SCH (09:41)
[2023-05-27] MEDS: ENOXAPARIN SODIUM 30 MG/0.3 ML SQ SCH (09:41)
[2023-05-27] MEDS: CLOPIDOGREL 75MG TAB PO SCH (09:41)
[2023-05-27] MEDS: TERBINAFINE HCL 250 MG TABLET PO SCH (09:41)
[2023-05-27] MEDS: FUROSEMIDE 40 MG TABLET PO SCH (09:41)
[2023-05-27] MEDS: BRIMONIDINE TARTRATE 0.2% 5 ML BOTTLE OP SCH (09:42)
[2023-05-27] MEDS: 0.9%NACL 10ML VIAL IV SCH (09:47)
[2023-05-27 12:00] VITALS: BP 134/67; PULSE 63; RESP 17
[2023-05-27] MEDS: ZOSYN 3.375GM +NS 50ML IV SCH (12:03)
== END 2023-05-27 16:00 | disposition home or self-care (01) | DRG 720 ==
LOC: EDH 22:56 → EDHIP 22:57 → 3DH 05-20 08:00
PROVIDERS: ADMIT Internal Medicine Infectious Disease; ATTEND Internal Medicine Infectious Disease
DX: A41.9 Sepsis, unspecified organism (principal); N17.9 Acute kidney failure, unspecified; E87.20 Acidosis, unspecified; J18.9 Pneumonia, unspecified organism; E87.1 Hypo-osmolality and hyponatremia; E11.22 Type 2 diabetes mellitus with diabetic chronic kidney disease; N18.4 Chronic kidney disease, stage 4 (severe); E86.0 Dehydration; E78.00 Pure hypercholesterolemia, unspecified; G40.909 Epilepsy, unspecified, not intractable, without status epilepticus; Z20.822 Contact with and (suspected) exposure to COVID-19; I12.9 Hypertensive chronic kidney disease with stage 1 through stage 4 chronic kidney disease, or unspecified chronic kidney disease; E87.6 Hypokalemia; Z82.49 Family history of ischemic heart disease and other diseases of the circulatory system; Z87.442 Personal history of urinary calculi; Z86.73 Personal history of transient ischemic attack (TIA), and cerebral infarction without residual deficits; Z83.3 Family history of diabetes mellitus
CPT/HCPCS: 36415; 36600; 71045; 80048; 80053; 81001; 82010; 82435; 82550; 82803; 82947; 82948; 83605; 83735; 83930; 84132; 84295; 84484; 85018; 85025; 85027; 85610; 85730; 87040; 87046; 87088; 87177; 87324; 87493; 87635; 87804; 93005; C9803; G0378; J0456; J0696; J1650; J1815; J2405; J2543; J3475; J3480; J3490; J7030; J7040; Q0169; C1750